=== PATIENT | male | born 1990 | race Two or more races ===

== ENCOUNTER 2018-12-08 00:11 | Inpatient (IN) | payer MEDICAID ==
[2018-12-08] VITALS (9 sets, daily range): BP systolic 134–214; BP diastolic 82–122
[~2018-12-08] VITALS: Ht 172.7 cm; Wt 64.9 kg
--- NOTE | 2018-12-08 00:35 | NUR ---
ADMISSION NOTE PATIENT IS A DIRECT ADMISSION FROM [facility] ER BEING DROPPED OFF BY EMS TRANSPORT TO [facility] DX OF GASTROPARESIS TO DR. SIMPSON. PATIENT IN BED TENSE COMPLAINING OF PAIN IN ABD AREA 04/19. PATIENT IS RESTLESS AND TENSE IN A CRAB LIKE POSITION IN BED. ORIENTED TO ROOM. ENCOURAGED TO RELAX IN BED. ADMISSION ASSESSMENT STARTED. INFORMED HE WILL HAVE TO BE PATIENT HE GETS SET UP IN COMPUTER FOR INITIATION OF ORDERS. DR. SIMPSON INFORMED.
[2018-12-08] MEDS ORDERED: INSU100V7 SQ (00:51)
[2018-12-08] MEDS ORDERED: INSU100V27 SQ (00:51)
[2018-12-08] MEDS ORDERED: CLON0.3T PO (00:51)
[2018-12-08] MEDS ORDERED: IV 1/2NS 1000 ML 1,000 ML IV PRN (00:53)
[2018-12-08] MEDS ORDERED: BLOOD SUGAR DIAGNOSTIC 1 EACH STRIP IN SCH (01:00)
[2018-12-08] MEDS ORDERED: ACETAMINOPHEN 325 MG TABLET PO PRN (01:00)
[2018-12-08] MEDS ORDERED: ZOLPIDEM TARTRATE 5 MG TABLET PO PRN (01:00)
[2018-12-08] MEDS ORDERED: HYDROCODONE/APAP 5/325MG 1 EACH TABLET PO PRN (01:00)
[2018-12-08] MEDS ORDERED: hydrALAZINE HCL 25 MG TABLET PO PRN (01:00)
[2018-12-08] MEDS ORDERED: DEXTROSE 50%-WATER 50 ML DISP.SYRIN IV PRN (01:00)
[2018-12-08] MEDS ORDERED: Z GUARD REMEDY 2 OZ OINT TP PRN (01:00)
[2018-12-08] MEDS ORDERED: INSULIN REGULAR, HUMAN 100 UNIT/ML 3 ML VIAL SQ PRN (01:00)
[2018-12-08] MEDS ORDERED: MAGNESIUM HYDROXIDE 30 ML UDC PO PRN (01:00)
[2018-12-08] MEDS ORDERED: MORPHINE SULFATE INJ 2 MG/ML DISP.SYRIN IV PRN (01:00)
[2018-12-08] MEDS ORDERED: MAG HYDROX/AL HYDROX/SIMETH 30 ML UDC PO PRN (01:00)
--- NOTE | 2018-12-08 01:00 | NUR ---
PATIENT SEEN IN ROOM PATIENT IS OUT OF BED AND LEANING ON BED IN CRAB LIKE POSITION ON FLOOR. REQUESTED PATIENT TO LAY IN BED. PATIENT STATES "I CANT THIS IS THE ONLY WAY I CAN GET THE PAIN IN MY ABD TO NOT HURT SO MUCH." ASKED IF THERE WAS ANYWAY WE COULD MAKE IT MORE COMFORTABLE TO HAVE PATIENT BE IN BED. PATIENT STATES, "NO, I WANT TO STAY IN THIS POSITION." PATIENT IS ANXIOUS AND RESTLESS. WILL CONT TO MONITOR.
--- NOTE | 2018-12-08 01:10 | NUR ---
MORPHINE PRN. MORPHINE ADMINISTERED PER PATIENT REQUEST ORDERED BY MD FOR ABD PAIN PATIENT REPORT 04/19.
[2018-12-08] MEDS ORDERED: KETOROLAC TROMETHAMINE INJ 30 MG/ML VIAL IM PRN (01:30)
--- NOTE | 2018-12-08 01:43 | NUR ---
mabel notified of patient pain after ms administered. mabel ribeiro contacted patient still reporting pain 101 n abd after administration of morphine new orders recieved. clarified iv rate. and clarified if insulin should be given while patient npo. Addendum: 12/08/18 at 0532 by JOSE DURAN RN PATIENT PAIN WAS 10/10 IN ABD.
[2018-12-08] MEDS: IV 1/2NS 1000 ML 1,000 ML IV PRN ×2 (01:47→10:37)
[2018-12-08 02:15] LABS: BASOPHILS % (AUTO) 0.7 % (0.0-2.0); EOSINOPHILS % (AUTO) 1.5 % (0.0-6.0); HEMATOCRIT 34 % (39-51); LYMPHOCYTES # (AUTO) 1.2 /CMM (0.8-4.8); LYMPHOCYTES % (AUTO) 17.7 % (20.0-44.0); MEAN CORPUSCULAR HGB CONC 33 g/dl (31.0-36.0); MEAN CORPUSCULAR VOLUME 90 fL (80-96); MONOCYTES # (AUTO) 0.5 /CMM (0.1-1.30); MONOCYTES % (AUTO) 6.8 % (2.0-12.0); NEUTROPHILS # (AUTO) 4.9 /CMM (1.8-8.9); NEUTROPHILS % (AUTO) 73.3 % (43.0-81.0); PLATELET COUNT (AUTO) 208 /CMM (150-450); RED BLOOD CELL COUNT(AUTO) 3.75 MIL/uL (4.5-6.0); WHITE BLOOD COUNT (AUTO) 6.7 K/uL (4.3-11.0)
[2018-12-08] MEDS: ONDANSETRON HCL/PF 4 MG/2 ML VIAL IVP PRN ×2 (02:29→10:36)
--- NOTE | 2018-12-08 02:30 | NUR ---
patient fall [facility] charge nurse states patient was staggering in [address] with iv and leaned on a chair in the [address] and stumbled/fell to floor. patient able to get up and escorted back to room. patient denies having pain. dr. ribeiro informed. no new orders.
--- NOTE | 2018-12-08 02:31 | NUR ---
TORADOL PRN. ZOFRAN PRN. PATIENT REQUESTING PAIN MEDICATIONS. TORADOL ADMINISTERED PER MD ORDERS FOR PATIENT REPORTED PAIN OF 10/10 IN ABD AREA. ZOFRAN ALSO ADMINISTERED ORDERED PER PATIENT REQUEST PATIENT HAS HAD EMESIS X2 SINCE ADMISSION IN AMOUNT OF 350 ML.
[2018-12-08] MEDS: BLOOD SUGAR DIAGNOSTIC 1 EACH STRIP IN SCH ×6 (02:34→21:12)
[2018-12-08] MEDS: INSULIN REGULAR, HUMAN 100 UNIT/ML 3 ML VIAL SQ PRN ×4 (02:37→21:12)
[2018-12-08 02:46] LABS: ALBUMIN 3.5 g/dL (3.4-5.0); BILIRUBIN,TOTAL 0.8 mg/dL (0.2-1.0); CALCIUM, SERUM 8.8 mg/dL (8.5-10.1); CREATININE 1.7 mg/dL (0.6-1.3); PHOSPHORUS 3.4 mg/dL (2.5-4.9); POTASSIUM 5.5 mmol/L (3.5-5.1); TOTAL PROTEIN, SERUM 6.7 g/dL (6.4-8.2)
--- NOTE | 2018-12-08 03:54 | NUR ---
bp high, patient still complaining of pain. dr. garcia contacted and informed of sbp is high at 211 and that patient is still complaining of pain 10/10 in abd, and is sitting in chair and keeps rocking and very restless moaining and yelling in room. new orders. recieved.
[2018-12-08] MEDS: MORPHINE SULFATE INJ 4 MG/ML DISP.SYRIN IV PRN ×5 (04:17→21:17)
[2018-12-08] MEDS: hydrALAZINE HCL IV 20 MG VIAL IV PRN (04:19)
--- NOTE | 2018-12-08 04:20 | NUR ---
HYDRALAZINE PRN MORPHINE PRN. HYDRALAZINE ADMINISTERED PERN FOR SBP OF 211 PER MD ORDERS. PATIENT ALSO HAS PAIN IN ABD OF 10/10 REQUESTING PAIN MEDICATIONS. MORPHINE ADMINISTERED PER MD ORDERS.
--- NOTE | 2018-12-08 04:45 | NUR ---
REEVAL BP AND PAIN, WOUND PICTURE REFUSAL. PATIENT SITTING IN CHAIR SEEN WITH EYES CLOSED AND DROOLING. EASILY AROUSABLE TO VOICE. STILL REPORTING PAIN OF 8/10 IN ABD. BP RECHECKED AND IS NOW 185/106 AND HR IS 103. ENCOURAGED TO LIE BACK IN BED FOR SAFETY. PATIENT STATES, "NO I WANT TO JUST KEEP SITTING HERE." REQUESTED PATIENT TO ALLOW ME TO TAKE PICUTRURES OF WOUND TO LOWER BACK. PATIENT STATES "I DON'T WANT YOU TO TAKE PICTURES OF MY BACK RIGHT NOW. I AM NOT IN THE MOOD."
[2018-12-08] MEDS: DEXTROSE 50%-WATER 50 ML DISP.SYRIN IV PRN ×2 (06:38→07:11)
--- NOTE | 2018-12-08 06:40 | NUR ---
bs low patient bs found to be 57 then upon recheck was bs of 63. attempted to gie patient d50 per ordrs but patient refusing requesting juice. recently vomited. patient informed if bs does not go up i may still have to use d50.
--- NOTE | 2018-12-08 07:05 | NUR ---
patient did not finish juice.. patient a bit lethargic. patient blood sugar is no 46 d50 administered as ordered. will reassess..
--- NOTE | 2018-12-08 07:25 | NUR ---
MS RN OPENING NOTES RECEIVED PT AWAKE AND SITTING ON CHAIR BY BEDSIDE. A/O X4 AND ABLE TO MAKE NEEDS KNOWN, VERBALIZED THAT HE'S MORE COMFORTABLE SITTING ON CHAIR THAN LYING ON BED AT THIS TIME. . ON ROOM AIR, RESPIRATIONS EVEN AND UNLABORED, NO SOB NOTED. IV ACCESS ON RIGHT HAND G#22 PATENT AND INTACT, IVF OF 1/2 NS @ 125ML/HR INFUSING WELL, NO S/S OF INFILTRATIONS NOTED. CALL LIGHT WITHIN REACH. WILL CONTINUE TO MONITOR ACCORDINGLY.
[2018-12-08] MEDS ORDERED: PANTOPRAZOLE 40 MG VIAL IV SCH (07:30)
--- NOTE | 2018-12-08 07:38 | NUR ---
FOLLOW UP FOR HYPOGLYCEMIA. BS NOW 115 POST D50 INJECTION. . PATIENT STILL LETHARGIC ENDORSED TO SYED RN TO CONT TO MONITOR.
[2018-12-08] MEDS: FAMOTIDINE/PF INJ 20 MG/2 ML VIAL IV SCH ×2 (08:21→21:02)
--- NOTE | 2018-12-08 08:26 | NUR ---
RN NOTES/ PAIN MANAGEMENT PATIENT NOTED MOANING AND GRIMACING AND COMPLAINED OF ABDOMINAL PAIN WITH SCALE OF 10/10, PRN MORPHINE 4MG/1ML IVP ADMINISTERED AT 0824. WILL CONTINUE TO MONITOR AND REASSESS PT.
[2018-12-08] MEDS ORDERED: BLOO-668 IN (08:46)
--- NOTE | 2018-12-08 10:46 | NUR ---
RN NOTES PATIENT NOTED VOMITED SMALL AMOUNT OF LIGHT BROWNISH LIQUID. PRN ZOFRAN ADMINISTERED AT 1036 ORDERED. WILL CONTINUE TOP MONITOR.
--- NOTE | 2018-12-08 10:52 | NUR ---
WOUND CARE CONSULT: PT PRESENTS WITH RAISED PINK/YELLOW LESION TO MIDBACK, PRESENT ON ADMISSION. AREA IS TENDER WITHOUT DRAINAGE. DEFER TO MD FOR POSSIBLE SURGICAL CONSULT. WILL SEE PRN. CURRENT BHAVESH SCORE IS 22.
[2018-12-08] MEDS: IV D5/0.45 NACL 1,000 ML IV PRN ×2 (12:44→22:51)
--- NOTE | 2018-12-08 12:44 | NUR ---
RN NOTES PT SEEN AND EVALUATED BY DR CASTRO WITH ORDER TO CHANGE IVF OF 1/2 NS AT 125 ML/HR TO D5 1/2 @ 75ML/HR. WILL CARRY OUT ORDER.
--- NOTE | 2018-12-08 12:45 | NUR ---
RN NOTES/ PAIN MANAGEMENT PATIENT C/O ABDOMINAL PAIN WITH SCALE OF 9/10, PRN MORPHINE 4MG/1ML IVP ADMINISTERED AT 1241. WILL CONTINUE TO MONITOR AND REASSESS PT
[2018-12-08] MEDS ORDERED: CLONIDINE HCL 0.1 MG TABLET PO PRN (16:30)
--- NOTE | 2018-12-08 16:55 | NUR ---
RN NOTES PATIENT NOTED WITH HIGH BP 196/104mmHg, PRN CATAPRES 0.3MG PO GIVEN. WILL CONTINUE TO MONITOR
--- NOTE | 2018-12-08 17:12 | NUR ---
RN NOTES/ PAIN MANAGEMENT PATIENT NOTED GRIMACING ANF MOANING WITH C/O ABDOMINAL PAIN WITH SCALE OF 9/10, PRN MORPHINE 4MG/1ML IVP ADMINISTERED AT 1709. WILL CONTINUE TO MONITOR AND REASSESS PT
--- NOTE | 2018-12-08 18:09 | NUR ---
RN NOTES RECHECKED BLOOD PRESSURE AFTER 1 HOUR S/P ADMINISTRATION OF CATAPRES 0.3MG PO AND BP WENT DOWN TO 142/88mmhg. WILL CONTINUE TO MONITOR.
--- NOTE | 2018-12-08 18:40 | NUR ---
MS RN CLOSING NOTES PT SITTING ON CHAIR BY BEDSIDE WATCHING TV AT THIS TIME. A/O X4 AND ABLE TO MAKE NEEDS KNOWN. PT REMINDED TO CALL FOR STAFF ASSISTANCE WHEN AMBULATING TO PREVENT FALL. ON ROOM AIR, TOLERATING WELL WITH NO SOB NOTED. DIABETIC STATUS CLOSELY MONITORED. IV ACCESS ON RIGHT HAND G#22 PATENT AND INTACT, IVF OF D5 1/2 NS @ 75ML/HR INFUSING WELL, NO S/S OF INFILTRATIONS NOTED. ALL NEEDS AND CARE ATTENDED WELL. CALL LIGHT WITHIN REACH. WILL ENDORSE TO ASSOCIATE EMBALMER/FUNERAL DIRECTOR NURSE FOR [facility].
--- NOTE | 2018-12-08 20:48 | NUR ---
Met with patient, he is awake and pleasant. He is diabetic insulin dependent since childhood. States he lives at home with his Mom in [place]. He is ambulatory and independent with adl's. He is currently unemployed, Mom is the primary source of support. His pcp is Dr. Lavelle Lynch in [place]. His mother will provide ride when discharge. Addendum: 12/08/18 at 2049 by WILLAM ORELLANA RN Amended: Links added.
--- NOTE | 2018-12-08 20:49 | NUR ---
Met with patient, he is awake and pleasant. States he lives wit his Mom in [place]. He is ambulatory and independent with adl's. He is currently unemployed, Mom is the primary source of support. His pcp is Dr. Lavelle Lynch in [place]. His mother will provide ride when discharge. Addendum: 12/08/18 at 2049 by WILLAM ORELLANA RN Amended: Links added.
--- NOTE | 2018-12-08 23:57 | NUR ---
PATIENTN IS RESTING COMFORTABLY IN BED.
[2018-12-09] MEDS: BLOOD SUGAR DIAGNOSTIC 1 EACH STRIP IN SCH ×5 (01:00→17:07)
--- NOTE | 2018-12-09 01:29 | NUR ---
BLOOD SUGAR FINGERSTICK AT 0100 WAS 107. PATIENT IS RESTING COMFORTABLY IN BED. NO COMPLAIN OF PAIN. NO N/V.
--- NOTE | 2018-12-09 05:08 | NUR ---
BLOOD SUGAR FINGERSTICK IS 92. PATIENT IS RESTING COMFORTABLY IN BED. NO COMPLAIN OF PAIN.
[2018-12-09] MEDS: MORPHINE SULFATE INJ 4 MG/ML DISP.SYRIN IV PRN ×2 (06:04→10:24)
--- NOTE | 2018-12-09 06:17 | NUR ---
MS RN CLOSING NOTES: PATIENT IS SITTING IN THE EDGE OF THE BED, ALERT AND ORIENTED X4. MEDICATED WITH MORPHINE 4MG IV @0600. CALL LIGHT WITHIN REACH. BED IN LOW LOCKED POSITION. STILL ON NPO. BLOOD SUGAR @0500 WAS 92. STILL WITH IVF RUNNING. NO ACUTE EVENTS OVERNIGHT. RESTED THROUGHOUT THE NIGHT.
[2018-12-09 07:14] LABS: BASOPHILS % (AUTO) 0.6 % (0.0-2.0); EOSINOPHILS % (AUTO) 0.8 % (0.0-6.0); HEMATOCRIT 29 % (39-51); HEMOGLOBIN 9.9 g/dL (13.5-17.5); LYMPHOCYTES # (AUTO) 0.9 /CMM (0.8-4.8); LYMPHOCYTES % (AUTO) 19.7 % (20.0-44.0); MEAN CORPUSCULAR HGB CONC 34 g/dl (31.0-36.0); MEAN CORPUSCULAR VOLUME 88 fL (80-96); MONOCYTES # (AUTO) 0.5 /CMM (0.1-1.30); MONOCYTES % (AUTO) 11.2 % (2.0-12.0); NEUTROPHILS # (AUTO) 3.2 /CMM (1.8-8.9); NEUTROPHILS % (AUTO) 67.7 % (43.0-81.0); PLATELET COUNT (AUTO) 322 /CMM (150-450); RED BLOOD CELL COUNT(AUTO) 3.31 MIL/uL (4.5-6.0); WHITE BLOOD COUNT (AUTO) 4.7 K/uL (4.3-11.0)
--- NOTE | 2018-12-09 07:25 | NUR ---
MS RN NOTES PATIENT IN BED ALERT ORIENTED X 4. NO ACUTE DISTRESS NOTED. BREATHING UNLABORED. NO SOB NOTED. IV ACCESS PATENT AND INTACT, NO REDNESS OR SWELLING NOTED. SAFETY MEASURES IN PLACE. WILL CONTINUE TO MONITOR ACCORDINGLY.
[2018-12-09 07:35] LABS: THYROID STIMULATING HORMONE 1.443 uIU/mL (0.358-3.74)
[2018-12-09] MEDS: hydrALAZINE HCL IV 20 MG VIAL IV PRN (07:35)
[2018-12-09 07:41] LABS: CALCIUM, SERUM 8.1 mg/dL (8.5-10.1); CREATININE 1.9 mg/dL (0.6-1.3); MAGNESIUM 2.1 mg/dL (1.8-2.4); PHOSPHORUS 4.8 mg/dL (2.5-4.9); POTASSIUM 4.2 mmol/L (3.5-5.1)
[2018-12-09 08:00] VITALS: BP 163/97
[2018-12-09] MEDS: FAMOTIDINE/PF INJ 20 MG/2 ML VIAL IV SCH (09:00)
[2018-12-09] MEDS: INSULIN REGULAR, HUMAN 100 UNIT/ML 3 ML VIAL SQ PRN ×2 (09:58→17:09)
[2018-12-09] MEDS ORDERED: IV NS 0.9% 1,000 ML IV PRN (10:32)
[2018-12-09] MEDS: ONDANSETRON HCL/PF 4 MG/2 ML VIAL IVP PRN (14:17)
--- NOTE | 2018-12-09 15:15 | NUR ---
RECEIVED NEW ORDER FROM DR GAURANG CASTRO FOR ADVIL, NOTED AND CARRIED OUT.
[2018-12-09] MEDS ORDERED: IBUPROFEN 200 MG TABLET PO ONE (15:30)
--- NOTE | 2018-12-09 18:45 | NUR ---
MS SHANK CARRIER NOTES PATIENT DISCHARGE HOME WITH FAMILY WITH STABLE VITAL SIGNS. NO ACUTE DISTRESS NOTED. BREATHING UNLABORED. NO SOB NOTED.DENIED PAIN. IV ACCESS REMOVED, NO REDNESS, NO SWELLING NOTED, NO BLEEDING NOTED. DISCHARGE INSTRUCTIONS GIVEN TO THE PATIENT INCLUDING FOLLOW UP WITH PRIMARY DOCTOR, VERBALIZED UNDERSTANDING . ALL BELONGINGS ACCOUNTED FOR. NEEDS ATTENDED AND ANTICIPATED. ASSISTED TO THE LOBBY, PICKED UP VIA PRIVATE CAR IN STABLE CONDITION.
== END 2018-12-09 18:45 | disposition home or self-care (01) | DRG 48 ==
LOC: MED 00:11
PROVIDERS: ADMIT Nurse Practitioner Acute Care; ATTEND Nurse Practitioner Acute Care
DX: E11.43 Type 2 diabetes mellitus with diabetic autonomic (poly)neuropathy (principal); E11.22 Type 2 diabetes mellitus with diabetic chronic kidney disease; N17.9 Acute kidney failure, unspecified; E11.65 Type 2 diabetes mellitus with hyperglycemia; E87.1 Hypo-osmolality and hyponatremia; K81.9 Cholecystitis, unspecified; E87.2 Acidosis; N18.3 Chronic kidney disease, stage 3 (moderate); K31.84 Gastroparesis; I12.9 Hypertensive chronic kidney disease with stage 1 through stage 4 chronic kidney disease, or unspecified chronic kidney disease; Z91.19 Patient's noncompliance with other medical treatment and regimen; Z90.49 Acquired absence of other specified parts of digestive tract; Z98.890 Other specified postprocedural states; H40.9 Unspecified glaucoma; E87.6 Hypokalemia; L02.212 Cutaneous abscess of back [any part, except buttock and flank]; Z88.8 Allergy status to other drugs, medicaments and biological substances
CPT/HCPCS: 36415; 80048-TC; 80053-TC; 80061-TC; 82962-TC; 83735-TC; 84100-TC; 84443-TC; 85025-TC; 87081-TC; G0378; J0360; J1815; J1885; J2270; J2405; J3490; J7030